=== PATIENT | male | born 1980 | race Caucasian/White ===

== ENCOUNTER → 2017-01-13 | Outpatient (CLI) | payer OTHER ==
[2016-01-27 04:57] VITALS: BP 149/97
[~2017-01-13] MED LIST: PHEN-318 PO
--- NOTE | 2017-01-13 16:19 | KCIC ---
MRI of the cervical spine without contrast 01/13/2017 CLINICAL HISTORY: Left arm numbness for over one year. TECHNIQUE: Unenhanced T1-weighted, T2-weighted and inversion recovery sagittal and gradient echo and T2-weighted axial images of the cervical spine were obtained. FINDINGS: Very mild lateral curvature of the cervical spine is seen convex to the right. There is mild straightening of the normal cervical lordosis. Degenerative signal changes are seen involving the C2-3, C3-4, C4-5 and C5-6 discs. The marrow signal of the visualized bony structures is within normal limits. The cervical spinal cord is normal in morphology, position, and signal characteristics. At the C2-3 disc space there is a minimal generalized disc bulge. Degenerative changes are seen involving the uncovertebral and facet joints bilaterally. These findings do not result in significant central spinal canal or neural foraminal stenosis. At the C3-4 disc space there is a mild generalized disc bulge. Degenerative changes are seen involving the uncovertebral and facet joints, right greater than left. These findings do not result in significant central spinal canal or neural foraminal stenosis. At the C4-5, C5-6 and C6-7 disc spaces there are minimal generalized disc bulges. Degenerative changes are seen involving the uncovertebral and facet joints bilaterally. These findings do not result in significant central spinal canal or neural foraminal stenosis. The C7-T1 disc space is within normal limits. IMPRESSION: Degenerative changes are seen involving the cervical spine. These findings do not result in significant central spinal canal or neural foraminal stenosis at any level. Electronically signed by: John Simon MD (01/13/2017 4:15 PM) [email or web address]
== END | disposition home or self-care (01) ==
LOC: KCIC MRI 14:28
PROVIDERS: ATTEND Physical Medicine & Rehabilitation
DX: M47.892 Other spondylosis, cervical region (principal); R20.0 Anesthesia of skin
CPT/HCPCS: 72141

== ENCOUNTER → 2017-01-27 | Outpatient (CLI) | payer OTHER ==
[2016-01-27 04:57] VITALS: BP 149/97
[~2017-01-27] MED LIST changes: +GABA-585 PO
--- NOTE | 2017-01-28 04:41 | PAIN ---
DATE OF SERVICE: 01/27/2017 INITIAL CONSULTATION FOR PAIN CLINIC CHIEF COMPLAINT: Left hand pain. HISTORY OF PRESENT ILLNESS: This is a 36-year-old male who presents with history of pain in the left hand for about 6 months, gradually starting, not resulting of any specific injury or action he is aware of, but his left entire hand was numb over time and it has gotten slightly improved but now, the pain is only in the medial aspect of his fourth finger, ring finger on the left hand. The patient reports it is becoming more severe, aching, shooting, throbbing, stabbing, becoming constant and sharp where he is having difficulty even bending his wrist or making a fist that is with flexion of the fingers. The patient has had EMG testing as well as evaluation with his PMR doctor with a diagnosis of carpal tunnel syndrome but without any surgery scheduled at this time. The patient has done some light physical therapy and occupational therapy but has not helped the pain. He has tried a Medrol steroid Dosepak as well as hydrocodone, which is not helping the pain as well. He had no other therapies or treatments at this time. The patient did have a cervical MRI to ensure no cervical radiculopathy symptoms and shows only degenerative changes involving the cervical spine but did not result in any significant central spinal canal or neural foraminal stenosis at any level. The patient reports the pain has been getting worse in the finger now, is localized in the ring finger, awakens him from sleep at least 3 times a night, does not affect his bowel or bladder control or ability to walk but is significantly limiting his activity. 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 The patient also does a lot of hand fishing, which exacerbates the pain as well. The patient rates his disability rate from 0-10, 10 being the worst; is at 9 with family home responsibilities, recreation, social activity and self care; 10 with occupation; 7 with sexual behavior and 6 with life support activities. The patient reports no symptoms on the right side, significant inability to use his left hand at the current time without anything that has helped significantly. PAST MEDICAL HISTORY: Significant for no major medical problems or conditions he is aware of. PAST SURGICAL HISTORY: Previous surgery includes a right knee scope with the patient has been in good health. CURRENT MEDICATIONS: Include gabapentin, the patient unsure of the dose, it makes him significantly sleepy and he has only been taking it at night. ALLERGIES: The patient reports no known drug allergies. FAMILY HISTORY: Significant for no major medical problems or conditions he is aware of. SOCIAL HISTORY: The patient does not drink alcohol, does not smoke, is and lives with his spouse locally in [place], [place]. Again, he works as a heating and cooling specialist. REVIEW OF SYSTEMS: The patient's review of systems is positive for those items mentioned in the history of present illness. All systems reviewed and otherwise negative. It is complete, full and well documented on the patient's chart. PHYSICAL EXAMINATION: GENERAL: Today's blood pressure 144/101, pulse 93, respirations 20, temperature is 98.0 degrees Fahrenheit, height is 6 feet 1 inch and weight is 245 pounds. GENERAL: The patient is awake, alert and appropriate, very pleasant demeanor. HEENT: Head shows normocephalic and atraumatic. Extraocular movements are intact, symmetrical. Oral cavity: Mucous membranes moist and pink. Dentition intact. NECK: Shows anterior throat supple without palpable lymphadenopathy noted. Swallow reflex symmetrical. CHEST: Shows normal with inspection. Breath sounds clear to auscultation bilaterally. HEART: Shows S1 and S2 clear. No murmurs auscultated. ABDOMEN: Soft, nontender and nondistended. No palpable organomegaly is noted. No rebound or guarding demonstrated. BACK: Shows spine grossly in the midline. Normal appearing thoracic kyphosis, lumbar lordotic curvature and cervical lordotic curvature. No previous bruises, lesions, rashes or scars are noted. The patient has some tattooing on the arms, but the skin has normal turgor without edema and is warm and dry. The patient's neck shows posterior cervical musculature is symmetrical with inspection on palpation shows no significant tenderness throughout the upper, middle and lower distribution of the paraspinous muscles of the cervical distribution as well as the trapezius musculature. The patient has full rotational motion of the cervical spine, both laterally greater than 45 degrees closer to 90 degrees, right and left as well as full extension, full forward flexion without significant pain reported or limitation of mobility. The patient's upper extremities show deep tendon reflexes of 2+ in the biceps and triceps tendons. Motor exam is approximately 5/5 with manager of administration strength on the right compared to the left. Left is approximately 3 on a scale 5 with significant pain reported in the ring finger, mostly in the palmar side, also some tenderness in the posterior wrist on the left side only. 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 Peripheral pulses are 2+ radial distribution. No peripheral edema is noted. No clubbing. No cyanosis. The hands show good color and reddish complexion, equal right and left. Good capillary paul from palmar and wrist posterior aspect of the skin. The patient shows significant tenderness with increased pressure over the median nerve at the carpal tunnel with direct pressure applied on the left hand exacerbates the pain significantly in the left index or ring finger. IMPRESSION: 1. This is a 36-year-old male with approximate 6-month history of increasing pain in the left hand initially with complete numbness now localized to the fourth finger consistent with carpal tunnel syndrome. 2. MRI scan of the cervical spine showing no significant areas of stenosis or any troubling lesions that would suggest a radiculopathy. PLAN: Options were discussed with the patient including conservative medical managements, physical therapies and interventional techniques. He would like to see surgical alternatives. We will make referral for neurosurgical evaluation for a left carpal tunnel release. We will keep this appointment and follow up as needed. MANNY BRONSON MD DR: MATTHEW/isai JOB#: [id number] / [id number] ecc ,
== END | disposition home or self-care (01) ==
LOC: PNCL 13:19
PROVIDERS: ATTEND Anesthesiology
DX: G56.02 Carpal tunnel syndrome, left upper limb (principal); M40.294 Other kyphosis, thoracic region
CPT/HCPCS: 99214

== ENCOUNTER 2017-02-25 07:00 | Day surgery (SDC) | payer OTHER ==
[~2017-02-25 07:00] MED LIST changes: -GABA-585 PO; +HYDROmorphone 2 MG/ML VIAL IV; +LIDOCAINE 1% PF 2 ML VIAL. ID; +MORPHINE SULFATE 2 MG/ML DISP.SYRIN. IV; -PHEN-318 PO; +PROCHLORPERAZINE 10 MG/2 ML VIAL. IV; +fentaNYL PF VIAL 100 MCG/2 ML VIAL IV
[2017-02-25 07:49] LABS: ADD MAN DIFF? NO
[2017-02-25] MEDS: IV RINGERS,LACTATED 1000ML 1,000 ML IV (07:50)
[2017-02-25 07:55] LABS: BASO % 0 % (0-3); EOS # 0.2 x10^3/uL (0.0-0.7); EOS % 3 % (0-3); HEMATOCRIT 45.3 % (39.0-53.0); HEMOGLOBIN 14.6 g/dL (13.0-17.5); LYMPH # 1.6 x10^3/uL (1.0-4.8); LYMPH % 28 % (24-48); MEAN CORPUSCULAR HEMOGLOBIN 26 pg (25-35); MEAN CORPUSCULAR HGB CONC 32 g/dL (31-37); MEAN CORPUSCULAR VOLUME 81 fL (79-100); MONO # 0.8 x10^3/uL (0.0-1.1); MONO % 13 % (0-9); NEUT # 3.1 x10^3uL (1.8-7.7); NEUT % 55 % (31-73); PLATELET COUNT 216 x10^3/uL (140-400); RED BLOOD COUNT 5.61 x10^6/uL (4.30-5.70); RED CELL DISTRIBUTION WIDTH 13.2 % (11.5-14.5); WHITE BLOOD COUNT 5.7 x10^3/uL (4.0-11.0)
[2017-02-25 08:00] LABS: PROTHROMBIN TIME PATIENT 12.2 SEC (11.7-14.0)
[2017-02-25 08:05] LABS: ANION GAP 11 (6-14); BLOOD UREA NITROGEN 16 mg/dL (8-26); BUN/CREATININE RATIO 18 (6-20); CALCIUM 8.6 mg/dL (8.5-10.1); CARBON DIOXIDE 25 mmol/L (21-32); CHLORIDE 106 mmol/L (98-107); CREATININE 0.9 mg/dL (0.7-1.3); GLUCOSE 109 mg/dL (70-99); POTASSIUM 4.1 mmol/L (3.5-5.1); SODIUM 142 mmol/L (136-145)
[2017-02-25 08:10] LABS: ALBUMIN 3.8 g/dL (3.4-5.0); ALBUMIN/GLOBULIN RATIO 1.1 (1.0-1.7); ALK PHOS 54 U/L (46-116); ALT (SGPT) 28 U/L (16-63); AST (SGOT) 18 U/L (15-37); TOTAL BILIRUBIN 0.3 mg/dL (0.2-1.0); TOTAL PROTEIN 7.4 g/dL (6.4-8.2)
[2017-02-25] MEDS ORDERED: MIDAZOLAM HCL/PF 2 MG/2 ML VIAL. (08:26)
[2017-02-25] MEDS ORDERED: fentaNYL PF VIAL 100 MCG/2 ML VIAL (08:26)
[2017-02-25] MEDS: LIDOCAINE 1% PF 30 ML VIAL. (09:18)
[2017-02-25] MEDS: BACITRACIN 50,000 UNIT in IV NORMAL SALINE 500ML BAG 500 ML IRR (09:18)
[2017-02-25] MEDS ORDERED: LIDOCAINE 2% PF Vial for OR 5 ML VIAL. ×3 (09:40)
[2017-02-25] MEDS ORDERED: 0.9 % SODIUM CHLORIDE 50 ML VIAL. IJ (09:41)
[2017-02-25] MEDS: fentaNYL PF VIAL 100 MCG/2 ML VIAL IV ×2 (10:05→10:15)
[2017-02-25] MEDS: oxyCODONE/APAP 5/325 1 TAB TABLET PO (10:18)
[2017-02-25] MEDS: ONDANSETRON PF 4 MG/2 ML VIAL. IV (10:25)
== END 2017-02-25 11:26 | disposition home or self-care (01) ==
LOC: SURG 07:00
DX: G56.02 Carpal tunnel syndrome, left upper limb (principal); E66.9 Obesity, unspecified; K21.9 Gastro-esophageal reflux disease without esophagitis; Z79.01 Long term (current) use of anticoagulants; Z87.39 Personal history of other diseases of the musculoskeletal system and connective tissue
CPT/HCPCS: 36415; 80053; 85025; 85610; J0690; J2250; J2405; J3010; J3490; J7040